=== PATIENT | female | born 1970 | race Caucasian/White ===

== ENCOUNTER 2018-11-01 14:08 | Emergency (ER) | payer BC, OTHER ==
[~2018-11-01] VITALS: Ht 154.9 cm; Wt 59.9 kg
--- NOTE | 2018-11-01 15:12 | PHYS DOC ---
Past Medical History Past Medical History: Hypothyroid Additional Past Medical Histor: cathy's, premature ovarian failure Past Surgical History: Cholecystectomy Alcohol Use: None Drug Use: None Adult General Chief Complaint Chief Complaint: OTHER COMPLAINTS HPI HPI Patient is a 48 year old female who presents with weakness and fast heart rate like previous addisonian crises. Patient took 20 of oral hydrocortisone and gave herself a presumed intramuscular injection with hydrocortisone and does not feel any better. The symptoms started at approximately 12:30 this afternoon. Patient notes that she has some chest pain with this. She normally gets chest pain when she has an addisonian crisis. There is no radiation. No worsening with deep breaths or exertion of the chest pain. Patient notes that she has some nausea, no vomiting, no diarrhea. Patient reports feeling a generalized malaise.[] Review of Systems Review of Systems Constitutional: Denies fever or chills [] Eyes: Denies change in visual acuity, redness, or eye pain [] HENT: Denies nasal congestion or sore throat [] Respiratory: Denies cough or shortness of breath [] Cardiovascular: No additional information not addressed in HPI [] GI: Denies abdominal pain, nausea, vomiting, bloody stools or diarrhea [] : Denies dysuria or hematuria [] Musculoskeletal: Denies back pain or joint pain [] Integument: Denies rash or skin lesions [] Neurologic: Denies headache, focal weakness or sensory changes [] Endocrine: Denies polyuria or polydipsia [] All other systems were reviewed and found to be within normal limits, except as documented in this note. Current Medications Current Medications Current Medications Medications (Trade) Dose Ordered Sig/Cristi Start Time Stop Time Status Last Admin Dose Admin Hydrocortisone Sodium Succinate (Solu-CORTEF) 100 mg 1X ONCE 11/01/18 15:15 11/01/18 15:16 DC Ringer's Solution 1,000 ml @ 500 mls/hr 1X ONCE 11/01/18 15:30 11/01/18 17:29 11/01/18 15:42 500 MLS/HR Allergies Allergies Allergies Coded Allergies Type Severity Reaction Last Updated Verified No Known Drug Allergies 03/22/15 No Physical Exam Physical Exam Constitutional: Well developed, well nourished, no acute distress, non-toxic appearance. [] HENT: Normocephalic, atraumatic, bilateral external ears normal, oropharynx moist, no oral exudates, nose normal. [] Eyes: PERRLA, EOMI, conjunctiva normal, no discharge. [] Neck: Normal range of motion, no tenderness, supple, no stridor. [] Cardiovascular:Heart rate regular rhythm, no murmur [] Lungs & Thorax: Bilateral breath sounds clear to auscultation [] Abdomen: Bowel sounds normal, soft, no tenderness, no masses, no pulsatile masses. [] Skin: Warm, dry, no erythema, no rash. [] Back: No tenderness, no CVA tenderness. [] Extremities: No tenderness, no cyanosis, no clubbing, ROM intact, no edema. [] Neurologic: Alert and oriented X 3, normal motor function, normal sensory function, no focal deficits noted. [] Psychologic: Affect normal, judgement normal, mood normal. [] Current Patient Data Vital Signs Vital Signs Date Time Temp Pulse Resp B/P (MAP) Pulse Ox O2 Delivery O2 Flow Rate FiO2 11/01/18 15:12 98.4 98 18 129/76 (93) 96 Room Air 98.4 Lab Values Laboratory Tests Test 11/01/18 15:05 11/01/18 16:14 11/01/18 16:22 White Blood Count 5.7 x10^3/uL (4.0-11.0) Red Blood Count 5.13 x10^6/uL (3.50-5.40) Hemoglobin 16.2 g/dL (12.0-15.5) H Hematocrit 45.9 % (36.0-47.0) Mean Corpuscular Volume 90 fL (79-100) Mean Corpuscular Hemoglobin 32 pg (25-35) Mean Corpuscular Hemoglobin Concent 35 g/dL (31-37) Red Cell Distribution Width 12.4 % (11.5-14.5) Platelet Count 271 x10^3/uL (140-400) Neutrophils (%) (Auto) 68 % (31-73) Lymphocytes (%) (Auto) 25 % (24-48) Monocytes (%) (Auto) 6 % (0-9) Eosinophils (%) (Auto) 1 % (0-3) Basophils (%) (Auto) 1 % (0-3) Neutrophils # (Auto) 3.9 x10^3uL (1.8-7.7) Lymphocytes # (Auto) 1.4 x10^3/uL (1.0-4.8) Monocytes # (Auto) 0.3 x10^3/uL (0.0-1.1) Eosinophils # (Auto) 0.1 x10^3/uL (0.0-0.7) Basophils # (Auto) 0.0 x10^3/uL (0.0-0.2) Sodium Level 136 mmol/L (136-145) Potassium Level 3.9 mmol/L (3.5-5.1) Chloride Level 99 mmol/L (98-107) Carbon Dioxide Level 25 mmol/L (21-32) Anion Gap 12 (6-14) Blood Urea Nitrogen 16 mg/dL (7-20) Creatinine 0.8 mg/dL (0.6-1.0) Estimated GFR (Cockcroft-Gault) 77.2 BUN/Creatinine Ratio 20 (6-20) Glucose Level 102 mg/dL (70-99) H Calcium Level 9.8 mg/dL (8.5-10.1) Total Bilirubin 0.3 mg/dL (0.2-1.0) Aspartate Amino Transferase (AST) 29 U/L (15-37) Alanine Aminotransferase (ALT) 32 U/L (14-59) Alkaline Phosphatase 62 U/L (46-116) Troponin I Quantitative < 0.017 ng/mL (0.000-0.055) Total Protein 7.7 g/dL (6.4-8.2) Albumin 4.5 g/dL (3.4-5.0) Albumin/Globulin Ratio 1.4 (1.0-1.7) Urine Collection Type Unknown Urine Color Yellow Urine Clarity Clear Urine pH 8.0 Urine Specific [place] 1.010 Urine Protein Negative mg/dL (NEG-TRACE) Urine Glucose (UA) Negative mg/dL (NEG) Urine Ketones (Stick) Negative mg/dL (NEG) Urine Blood Negative (NEG) Urine Nitrite Negative (NEG) Urine Bilirubin Negative (NEG) Urine Urobilinogen Dipstick 0.2 mg/dL (0.2 mg/dL) Urine Leukocyte Esterase Negative (NEG) Urine RBC 0 /HPF (0-2) Urine WBC 0 /HPF (0-4) Urine Squamous Epithelial Cells Occ /LPF Urine Bacteria 0 /HPF (0-FEW) POC Urine HCG, Qualitative Hcg negative (Negative) Laboratory Tests 11/01/18 15:05 Laboratory Tests 11/01/18 15:05 EKG EKG [] Radiology/Procedures Radiology/Procedures [] Course & Med Decision Making Course & Med Decision Making Pertinent Labs and Imaging studies reviewed. (See chart for details) ED course: Patient arrived, was placed in bed, tolerate exam well. Patient was feeling better before being given additional dose of hydrocortisone in the emergency department. She refused the additional dose. Discussion with her overnight associate, at endocrinology. Since her labs look good and her blood pressure is doing well, this may be an infection that triggered the crisis that has not quite declared itself yet. Dr. HARRIS recommended increasing the Cortef at home for 3 days and then going back to her usual dose. This was discussed with the patient and her family voiced understanding. All questions were answered. Medical decision making: This appears to be adrenal insufficiency that was appropriately addressed by her home and rescue medicines. There is no indication for admission at this time.[] Dragon Disclaimer Dragon Disclaimer This electronic medical record was generated, in whole or in part, using a voice recognition dictation system. Departure Departure Impression: Primary Impression: Adrenal insufficiency ([place] disease) Disposition: HOME, SELF-CARE Condition: GOOD Referrals: MENDEZ RODRIGUEZ (PCP) Follow-up in 2 days Patient Instructions: Cathy's Disease, Adrenal Insufficiency Additional Instructions: Double your Cortef dose for 3 days. Then go back your regular dose Follow-up with your regular doctor in 2 days Return to the ER if worsening chest discomfort, difficulty breathing, weakness, fever, or any other concerns. LESLIE RUSH DO Nov 01, 2018 15:12
[2018-11-01] MEDS ORDERED: HYDROCORTISONE SOD SUCC/PF 100 MG/2 ML VIAL. IV ONE (15:15)
[2018-11-01 15:30] LABS: BASO % 1 % (0-3); EOS # 0.1 x10^3/uL (0.0-0.7); EOS % 1 % (0-3); HEMATOCRIT 45.9 % (36.0-47.0); HEMOGLOBIN 16.2 g/dL (12.0-15.5); LYMPH # 1.4 x10^3/uL (1.0-4.8); LYMPH % 25 % (24-48); MEAN CORPUSCULAR HEMOGLOBIN 32 pg (25-35); MEAN CORPUSCULAR HGB CONC 35 g/dL (31-37); MEAN CORPUSCULAR VOLUME 90 fL (79-100); MONO # 0.3 x10^3/uL (0.0-1.1); MONO % 6 % (0-9); NEUT # 3.9 x10^3uL (1.8-7.7); NEUT % 68 % (31-73); PLATELET COUNT 271 x10^3/uL (140-400); RED BLOOD COUNT 5.13 x10^6/uL (3.50-5.40); RED CELL DISTRIBUTION WIDTH 12.4 % (11.5-14.5); WHITE BLOOD COUNT 5.7 x10^3/uL (4.0-11.0)
[2018-11-01] MEDS ORDERED: IV RINGERS,LACTATED 500ML 1,000 ML IV ONE (15:30)
[2018-11-01 15:41] LABS: CALCIUM 9.8 mg/dL (8.5-10.1); CREATININE 0.8 mg/dL (0.6-1.0); GFR 77.2; POTASSIUM 3.9 mmol/L (3.5-5.1)
[2018-11-01 15:48] LABS: ALBUMIN 4.5 g/dL (3.4-5.0); ALBUMIN/GLOBULIN RATIO 1.4 (1.0-1.7); TOTAL BILIRUBIN 0.3 mg/dL (0.2-1.0); TOTAL PROTEIN 7.7 g/dL (6.4-8.2)
--- NOTE | 2018-11-01 16:15 | EKG ---
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
[2018-11-01 16:31] LABS: BILIRUBIN,URINE NEGATIVE (NEG); CLARITY,URINE CLEAR; COLOR,URINE YELLOW; NITRITE,URINE NEGATIVE (NEG); PROTEIN,URINE NEGATIVE (NEG-TRACE); UROBILINOGEN,URINE 0.2 mg/dL (0.2 mg/dL)
[2018-11-01 16:42] LABS: BACTERIA,URINE 0 /HPF (0-FEW); RBC,URINE 0 /HPF (0-2); SQUAMOUS EPITHELIAL CELL,UR OCC /LPF; WBC,URINE 0 /HPF (0-4)
[2018-11-01 17:00] VITALS: BP 107/65
== END 2018-11-01 17:36 | disposition home or self-care (01) ==
LOC: ER 14:08
DX: E27.1 Primary adrenocortical insufficiency (principal); R53.1 Weakness; R07.89 Other chest pain; E03.9 Hypothyroidism, unspecified; Z90.49 Acquired absence of other specified parts of digestive tract
CPT/HCPCS: 36415; 80053; 81001; 81025; 82533; 84484; 85025; 93005; 99284; J7120

== ENCOUNTER 2019-06-23 14:35 | Emergency (ER) | payer BC ==
[~2019-06-23] VITALS: Ht 154.9 cm; Wt 63.0 kg
--- NOTE | 2019-06-23 14:58 | EKG ---
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
[2019-06-23 15:10] LABS: BASO % 1 % (0-3); EOS # 0.1 x10^3/uL (0.0-0.7); EOS % 1 % (0-3); HEMATOCRIT 41.5 % (36.0-47.0); HEMOGLOBIN 14.4 g/dL (12.0-15.5); LYMPH # 1.5 x10^3/uL (1.0-4.8); LYMPH % 28 % (24-48); MEAN CORPUSCULAR HEMOGLOBIN 32 pg (25-35); MEAN CORPUSCULAR HGB CONC 35 g/dL (31-37); MEAN CORPUSCULAR VOLUME 91 fL (79-100); MONO # 0.4 x10^3/uL (0.0-1.1); MONO % 8 % (0-9); NEUT # 3.3 x10^3/uL (1.8-7.7); NEUT % 63 % (31-73); PLATELET COUNT 239 x10^3/uL (140-400); RED BLOOD COUNT 4.56 x10^6/uL (3.50-5.40); RED CELL DISTRIBUTION WIDTH 12.2 % (11.5-14.5); WHITE BLOOD COUNT 5.3 x10^3/uL (4.0-11.0)
[2019-06-23 15:23] LABS: CALCIUM 9.2 mg/dL (8.5-10.1); CREATININE 0.9 mg/dL (0.6-1.0); GFR 67.4; POTASSIUM 3.8 mmol/L (3.5-5.1); PREG TEST PT QUAL NEGATIVE (NEG)
--- NOTE | 2019-06-23 15:26 | RAD ---
EXAM: Chest, single view. HISTORY: Shortness of breath. COMPARISON: None. FINDINGS: A frontal view of the chest is obtained. There is no infiltrate, pleural effusion or pneumothorax. The heart is normal in size. IMPRESSION: No acute pulmonary finding. Electronically signed by: Ariana Lucero MD (06/23/2019 3:23 PM) [facility]
[2019-06-23 15:31] LABS: ALBUMIN 3.8 g/dL (3.4-5.0); ALBUMIN/GLOBULIN RATIO 1.2 (1.0-1.7); TOTAL BILIRUBIN 0.2 mg/dL (0.2-1.0)
[2019-06-23 15:45] VITALS: BP 127/66
--- NOTE | 2019-06-23 16:24 | PHYS DOC ---
Past Medical History Past Medical History: Depression, Hypothyroid, Migraines Additional Past Medical Histor: ADRENAL INSUFF- cathy's, premature ovarian failure Past Surgical History: Cholecystectomy, Tonsillectomy Alcohol Use: Rarely Drug Use: None Adult General Chief Complaint Chief Complaint: Palpitations HPI HPI Patient is a 48 year old female history of [place]'s disease, premature ovarian failure syndrome, hypothyroidism migraine syndrome who presents with visual disturbance. 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 It was as though there is a cigarette which was fluid. Patient denies headache, blurred vision, extremity weakness, sensation or seizure episode. Strews hallucinations or delusions. Patient states status of titrating off Zoloft and starting Prozac and recently increased her Prozac dose 3 days ago. Reports going anxious with anxiety-like symptoms after experiencing visual disturbance. Reports anxiety, chest tightness, palpitations and shortness of breath. Patient took 0.25 mg of Xanax prior to coming to the emergency department. No other acute symptoms or complaints.[] Review of Systems Review of Systems Review symptoms as per history of present illness. All other review symptoms are negative. All other systems were reviewed and found to be within normal limits, except as documented in this note. Allergies Allergies Allergies Coded Allergies Type Severity Reaction Last Updated Verified fluconazole Allergy Unknown 06/23/19 Yes levofloxacin Allergy Unknown 06/23/19 Yes Physical Exam Physical Exam Constitutional: Well developed, well nourished, anxious, tearful. [] HENT: Normocephalic, atraumatic, bilateral external ears normal, oropharynx moist, no oral exudates, nose normal. [] Eyes: PERRLA, EOMI, conjunctiva normal, no discharge. [] Neck: Normal range of motion, no tenderness, supple. [] Cardiovascular: Tachycardia., Regular rhythm[] Lungs & Thorax: Bilateral breath sounds clear to auscultation [] Abdomen: Bowel sounds normal, soft, no tenderness. [] Skin: Warm, dry, no erythema, no rash. [] Back: No tenderness. [] Extremities: No tenderness. [] Neurologic: Alert and oriented X 3, cranial nerves II through XII grossly intact, normal motor function, normal sensory function, no focal deficits noted. Normal [id number], normal ramh-cy-pscu.[] Psychologic: Affect normal, judgement normal, mood normal. [] Current Patient Data Vital Signs Vital Signs Date Time Temp Pulse Resp B/P (MAP) Pulse Ox O2 Delivery O2 Flow Rate FiO2 06/23/19 15:45 86 127/66 (86) 98 Room Air 06/23/19 15:15 20 06/23/19 14:35 98.5 98.5 Lab Values Laboratory Tests Test 06/23/19 15:00 White Blood Count 5.3 x10^3/uL (4.0-11.0) Red Blood Count 4.56 x10^6/uL (3.50-5.40) Hemoglobin 14.4 g/dL (12.0-15.5) Hematocrit 41.5 % (36.0-47.0) Mean Corpuscular Volume 91 fL (79-100) Mean Corpuscular Hemoglobin 32 pg (25-35) Mean Corpuscular Hemoglobin Concent 35 g/dL (31-37) Red Cell Distribution Width 12.2 % (11.5-14.5) Platelet Count 239 x10^3/uL (140-400) Neutrophils (%) (Auto) 63 % (31-73) Lymphocytes (%) (Auto) 28 % (24-48) Monocytes (%) (Auto) 8 % (0-9) Eosinophils (%) (Auto) 1 % (0-3) Basophils (%) (Auto) 1 % (0-3) Neutrophils # (Auto) 3.3 x10^3/uL (1.8-7.7) Lymphocytes # (Auto) 1.5 x10^3/uL (1.0-4.8) Monocytes # (Auto) 0.4 x10^3/uL (0.0-1.1) Eosinophils # (Auto) 0.1 x10^3/uL (0.0-0.7) Basophils # (Auto) 0.0 x10^3/uL (0.0-0.2) D-Dimer (Fatoumata) < 0.27 ug/mlFEU Sodium Level 138 mmol/L (136-145) Potassium Level 3.8 mmol/L (3.5-5.1) Chloride Level 103 mmol/L (98-107) Carbon Dioxide Level 27 mmol/L (21-32) Anion Gap 8 (6-14) Blood Urea Nitrogen 15 mg/dL (7-20) Creatinine 0.9 mg/dL (0.6-1.0) Estimated GFR (Cockcroft-Gault) 67.4 BUN/Creatinine Ratio 17 (6-20) Glucose Level 111 mg/dL (70-99) H Calcium Level 9.2 mg/dL (8.5-10.1) Total Bilirubin 0.2 mg/dL (0.2-1.0) Aspartate Amino Transferase (AST) 20 U/L (15-37) Alanine Aminotransferase (ALT) 22 U/L (14-59) Alkaline Phosphatase 53 U/L (46-116) Troponin I Quantitative < 0.017 ng/mL (0.000-0.055) CN-Vnw-C-Type Natriuretic Peptide 36 pg/mL (0-124) Total Protein 7.0 g/dL (6.4-8.2) Albumin 3.8 g/dL (3.4-5.0) Albumin/Globulin Ratio 1.2 (1.0-1.7) Thyroid Stimulating Hormone (TSH) 0.200 uIU/mL (0.358-3.74) L Serum Test, Qualitative Negative (NEG) Laboratory Tests 06/23/19 15:00 Laboratory Tests 06/23/19 15:00 EKG EKG [EKG: sinus tach.] Radiology/Procedures Radiology/Procedures [CXR: NAD per radiology report] Course & Med Decision Making Course & Med Decision Making Pertinent Labs and Imaging studies reviewed. (See chart for details) [Perceptual disturbance-etiology unclear with secondary panic attack. Patient took second dose of Xanax on ED arrival. Symptoms fully resolved. Vital signs stable. Lab work reviewed the reassured. Patient with perceptual disturbances possibly having an aura or related to recent changes in shins. Recommend watch ful waiting PCP follow-up as needed. Return precautions reviewed] Dragon Disclaimer Dragon Disclaimer This electronic medical record was generated, in whole or in part, using a voice recognition dictation system. Departure Departure Impression: Primary Impression: Perceptual disorder Additional Impression: Anxiety attack Disposition: 01 HOME, SELF-CARE Condition: IMPROVED Referrals: NIYAH GONZALES DO (PCP) Patient Instructions: Anxiety and Panic Attacks, [id number] Additional Instructions: You were evaluated in the emergency department for perceptual disturbance with secondary panic attack. Lab EKG and imaging studies were performed and are nond iagnostic. The cause of your perceptual disturbance has not been determined. Follow up with your PCP for re-evaluation as needed. Return to the ED if new or worsening symptoms. Problem Qualifiers SULEIMAN PEDRAZA DO Jun 23, 2019 16:24
== END 2019-06-23 16:37 | disposition home or self-care (01) ==
LOC: ER 14:35
DX: H53.33 Simultaneous visual perception without fusion (principal); F41.9 Anxiety disorder, unspecified; R06.02 Shortness of breath; R07.89 Other chest pain; G43.909 Migraine, unspecified, not intractable, without status migrainosus; E03.9 Hypothyroidism, unspecified; F32.9 Major depressive disorder, single episode, unspecified; Z88.1 Allergy status to other antibiotic agents; Z88.8 Allergy status to other drugs, medicaments and biological substances; F17.210 Nicotine dependence, cigarettes, uncomplicated
CPT/HCPCS: 36415; 71045; 80053; 83880; 84443; 84484; 84703; 85025; 85379; 93005; 99285-25